=== PATIENT | male | born 1980 | race Caucasian/White ===

== ENCOUNTER 2016-10-20 10:55 | Inpatient (IN) | payer OTHER ==
[~2016-10-20] VITALS: Ht 180.3 cm; Wt 97.5 kg
[2016-10-20 11:00] VITALS: BP_SYST 144
[2016-10-20] MEDS ORDERED: NACL 0.9% 1,000 ML IV ONE (11:05)
[2016-10-20] MEDS ORDERED: ONDANSETRON HCL 4 MG/2 ML VIAL IVP ONE (11:15)
[2016-10-20 11:18] LABS: BILIRUBIN,URINE NEGATIVE (NEGATIVE); BLOOD, URINE NEGATIVE (NEGATIVE); CLARITY/URINE CLEAR (CLEAR); COLOR,URINE YELLOW (YELLOW); GLUCOSE,URINE NEGATIVE (NEGATIVE); KETONES,URINE NEGATIVE (NEGATIVE); LEUKOCYTE ESTERASE ,URINE NEGATIVE (NEGATIVE); NITRITE, URINE NEGATIVE (NEGATIVE); PH,URINE 5.5 (5.0-8.0); PROTEIN URINE NEGATIVE (NEGATIVE); UROBILINOGEN,URINE 0.2 (0.2-1.0)
[2016-10-20 11:35] LABS: ANION GAP 4 (5-15); CHLORIDE 107 mmol/L (98-107); CREATININE 0.89 mg/dL (0.55-1.30); GLUCOSE 93 mg/dL (70-99); POTASSIUM 3.7 mmol/L (3.5-5.1); SODIUM SERUM 139 mmol/L (136-145); UREA NITROGEN, BLOOD 15 mg/dL (8-21)
[2016-10-20 11:38] LABS: BASOPHILS # (AUTO) 0.1 K/uL (0.0-0.2); BASOPHILS % (AUTO) 0.7 % (0.0-2.0); EOSINOPHILS # (AUTO) 0.1 K/uL (0.0-0.4); EOSINOPHILS % (AUTO) 0.9 % (0.0-4.0); HEMATOCRIT 45.1 % (36-54); HEMOGLOBIN 14.8 g/dL (14.0-18.0); LYMPHOCYTES % (AUTO) 24.7 % (20.5-51.5); MEAN CORPUSCULAR HEMOGLOBIN 27 pg (27-31); MEAN CORPUSCULAR HGB CONC 33 % (32-36); MEAN CORPUSCULAR VOLUME 82 fL (79.0-98.0); MONOCYTES # (AUTO) 0.6 K/uL (0.0-1.0); MONOCYTES % (AUTO) 7.1 % (1.7-9.3); NEUTROPHILS # (AUTO) 5.3 K/uL (1.8-7.7); NEUTROPHILS % (AUTO) 66.6 % (40.0-70.0); PLATELET COUNT (AUTO) 257 K/uL (130-430); RED BLOOD CELL COUNT(AUTO) 5.49 MIL/uL (4.2-6.2); RED CELL DISTRIBUTION WIDTH 13.6 % (9.0-15.0); WHITE BLOOD COUNT (AUTO) 8.1 K/uL (4.8-10.8)
[2016-10-20 11:39] LABS: ALANINE AMINOTRANSFERASE 36 U/L (12-78); ALBUMIN 3.9 g/dL (3.4-4.8); AMYLASE 41 U/L (0-100); ASPARTATE AMINOTRANSFERASE 24 U/L (10-37); CREATINE KINASE, TOTAL 362 U/L (39-308); LIPASE 112 U/L (73-393); TOTAL BILIRUBIN 0.6 mg/dL (0.0-1.0); TOTAL PROTEIN, SERUM 7.9 g/dL (6.4-8.3)
[2016-10-20 11:40] LABS: ALCOHOL, BLOOD < 3 mg/dL (<10); GFR AFRICAN AMERICAN 124 mL/min (>90); PROTHROMBIN TIME 10.6 SECS (9.5-12.5)
[2016-10-20 11:46] LABS: BENZODIAZEPINE, URINE POSITIVE (NEG <=150); METHAMPHETAMINES SCREEN,URINE POSITIVE (NEG <=500); OPIATE, URINE POSITIVE (NEG <=100); URINE AMPHETAMINE POSITIVE (NEG <=500)
[2016-10-20 11:47] LABS: BARBITURATE, URINE NEGATIVE (NEG <=200); CANNABINOID, URINE NEGATIVE (NEG <=50); COCAINE, URINE NEGATIVE (NEG <=150); PHENCYCLIDINE SCREEN,URINE NEGATIVE (NEG <=25); UR TRICYCLIC ANTIDEPRESSANTS NEGATIVE (NEG <=300); URINE METHADONE NEGATIVE (NEG <=200); URINE OXYCODONE SCREEN NEGATIVE (NEG <=100); URINE PROPOXYPHENE SCREEN NEGATIVE (NEG <=300)
[2016-10-20] MEDS ORDERED: ONDANSETRON HCL 4 MG/2 ML VIAL ONE (11:54)
[2016-10-20 11:58] LABS: SALICYLATE 1 mg/dL (3-30)
[2016-10-20 12:04] LABS: ACETAMINOPHEN < 1 ug/mL (1-30); CKMB RELATIVE INDEX 1.3 (0.0-2.9); CREATINE KINASE MB 4.7 ng/mL (0-3.6)
[2016-10-20] MEDS ORDERED: ALPR1TAB2 PO (15:50)
[2016-10-20] MEDS ORDERED: HYDR-4100 PO (15:50)
[2016-10-20 17:15] VITALS: BP_SYST 129
[2016-10-20 17:32] VITALS: BP_SYST 129
[2016-10-20] MEDS ORDERED: ALPRAZolam 0.25 MG TABLET PO PRN ×2 (17:45)
[2016-10-20] MEDS ORDERED: ACETAMINOPHEN 325 MG TABLET PO PRN (17:45)
[2016-10-20] MEDS ORDERED: ONDANSETRON HCL 4 MG/2 ML VIAL IVP PRN (17:45)
[2016-10-20] MEDS ORDERED: PANTOPRAZOLE SODIUM 40 MG TAB PO SCH (17:45)
[2016-10-20] MEDS ORDERED: ZOLPIDEM TARTRATE 5 MG TABLET PO PRN (19:30)
[2016-10-20 22:04] VITALS: BP_SYST 130
== END 2016-10-20 22:20 | disposition left against medical advice (07) | DRG 885 ==
LOC: SED 10:55 → SIC 15:44
PROVIDERS: ADMIT Internal Medicine; ATTEND Internal Medicine
DX: F32.2 Major depressive disorder, single episode, severe without psychotic features (principal); R45.851 Suicidal ideations; F23 Brief psychotic disorder; Z53.21 Procedure and treatment not carried out due to patient leaving prior to being seen by health care provider; F41.9 Anxiety disorder, unspecified; F12.90 Cannabis use, unspecified, uncomplicated; Z82.49 Family history of ischemic heart disease and other diseases of the circulatory system
CPT/HCPCS: 36415; 80053; 80307; 81003; 82150-TC; 82550-TC; 82553-TC; 83690-TC; 84443-TC; 85025; 85610-TC; 85730-TC; 93005; G0480; G0481; G0482; J2405; J7030

== ENCOUNTER 2016-10-21 00:11 | Emergency (ER) | payer SELFPAY ==
[~2016-10-21] VITALS: Ht 180.3 cm; Wt 74.8 kg
[~2016-10-21 00:11] MED LIST: ALPR1TAB2 PO; HYDR-4100 PO
[2016-10-21 00:16] VITALS: BP_SYST 149
--- NOTE | 2016-10-21 00:18 | NUR ---
Patient to ER bed 05 to gown for evaluation. Side rails up. Report given to SANG Holland.
--- NOTE | 2016-10-21 00:20 | NUR ---
Patient brought to ED by a/o x 4. Patient was seen at [facility] earlier today. Admitted to ICU for psychiatric evaluation. During time in ICU, patient was evaluated by PET team. PET team reports minimal cooperation during evaluation. Patient was placed on a 5150 hold. Patient fled ICU at approximately 2220. Patient reports being asleep during evaluation, and awakening to hold placement. Patient has Hx of anxiety. Upon return to ED patient is aggitated. Patient denies pain. Has no other medical complaints. Patient does not appear to be threat to self or others. Denies suicidal ideation. Patient is upset about being placed on hold. at bedside. Will continue to monitor.
--- NOTE | 2016-10-21 00:30 | NUR ---
Spoke with patient regarding 5150 hold and placement on hold. Patient appears agitated and frustrated over hold placement, patient states he has been to [facility] before and does not want to return. Patient is not violent at this time, but is refusing to reliquish belongings, patient is in gown and was wanded by security staff. Patient repeatedly denies suicidal ideation. Though non-violent at this time, patient's level of agitation over current situation is cause for concern over safety of staff and other patient's. Will continue to monitor and consult with warehouse engineer.
--- NOTE | 2016-10-21 00:30 | NUR ---
Security at bedside.
--- NOTE | 2016-10-21 00:30 | NUR ---
Patient belonging wanded.
--- NOTE | 2016-10-21 00:35 | NUR ---
ED MD Osea at bedside for medical evaluation.
--- NOTE | 2016-10-21 00:50 | NUR ---
Spoke with telephone supervisor SANG Maher and was told to call PET team for possible re-evaluation per Tessy CUELLAR.
--- NOTE | 2016-10-21 00:55 | NUR ---
Spoke with PET team Nela and Felix Martínez regarding patient and placement of 5150 hold on patient. Informed that the carrying out of 5150 hold should be followed out per hospital policy and reassessment is not an option at this time,"unless absolutely necessary", even though patient at this time does not appear to meet 5150 Criteria. Accounts Receivable Representative SANG Maher informed. Will consult with house director, TATIANA PRICE, and DON at this time for treatment plan. Addendum: 10/21/16 at 0356 by SDEDLJ Correct lawrenceing Felix Wyman.
--- NOTE | 2016-10-21 01:10 | NUR ---
Bertin Hurt arrived to ED. Informed by they are unable to intervene with patient, because he is not in custody. reports intervening with a medical patient is deemed out of procedure. Bertin Hurt informed to notify if the patient elopes, but can provide no further assistance at this time.
[2016-10-21] MEDS ORDERED: NACL 0.9% 1,000 ML IV ONE (01:59)
[2016-10-21] MEDS: ZIPRASIDONE HCL 20 MG CAPSULE (GEODON) PO SCH ×3 (02:15→09:37)
[2016-10-21 02:22] LABS: BILIRUBIN,URINE NEGATIVE (NEGATIVE); BLOOD, URINE NEGATIVE (NEGATIVE); COLOR,URINE YELLOW (YELLOW); GLUCOSE,URINE NEGATIVE (NEGATIVE); KETONES,URINE NEGATIVE (NEGATIVE); LEUKOCYTE ESTERASE ,URINE NEGATIVE (NEGATIVE); NITRITE, URINE NEGATIVE (NEGATIVE); PROTEIN URINE NEGATIVE (NEGATIVE); UROBILINOGEN,URINE 0.2 (0.2-1.0)
[2016-10-21 02:25] LABS: CLARITY/URINE HAZY (CLEAR)
--- NOTE | 2016-10-21 02:30 | NUR ---
Patient calm and compliant, apologizes for earlier agitation. Patient states he came in earlier to the ED because he was "...tired and I've been working alot. I felt like I just needed some fluids and rest and the next thing I know they put me on a hold." Patient states he does have anxiety disorder and is currently on anti-anxiety medications at home, states "I was not properly medicated when I was admitted they only gave me 0.5 mg of my med and I usually take 1 mg." Patient is willing to wait for psychiatric md consult and will comply with lab blood draw at this time. No acute distress noted. Will continue to monitor.
[2016-10-21 02:33] LABS: BARBITURATE, URINE NEGATIVE (NEG <=200); BENZODIAZEPINE, URINE POSITIVE (NEG <=150); CANNABINOID, URINE NEGATIVE (NEG <=50); COCAINE, URINE NEGATIVE (NEG <=150); METHAMPHETAMINES SCREEN,URINE NEGATIVE (NEG <=500); OPIATE, URINE NEGATIVE (NEG <=100); PHENCYCLIDINE SCREEN,URINE NEGATIVE (NEG <=25); UR TRICYCLIC ANTIDEPRESSANTS NEGATIVE (NEG <=300); URINE AMPHETAMINE POSITIVE (NEG <=500); URINE METHADONE NEGATIVE (NEG <=200); URINE OXYCODONE SCREEN NEGATIVE (NEG <=100); URINE PROPOXYPHENE SCREEN NEGATIVE (NEG <=300)
--- NOTE | 2016-10-21 02:35 | NUR ---
Laboratory at bedside.
[2016-10-21 03:22] LABS: BASOPHILS % (AUTO) 0.5 % (0.0-2.0); EOSINOPHILS # (AUTO) 0.2 K/uL (0.0-0.4); EOSINOPHILS % (AUTO) 3.5 % (0.0-4.0); HEMOGLOBIN 15.2 g/dL (14.0-18.0); LYMPHOCYTES # (AUTO) 2.2 K/uL (1.0-5.5); LYMPHOCYTES % (AUTO) 30.9 % (20.5-51.5); MEAN CORPUSCULAR HEMOGLOBIN 27 pg (27-31); MEAN CORPUSCULAR HGB CONC 32 % (32-36); MEAN CORPUSCULAR VOLUME 83 fL (79.0-98.0); MONOCYTES # (AUTO) 0.7 K/uL (0.0-1.0); MONOCYTES % (AUTO) 10.3 % (1.7-9.3); NEUTROPHILS # (AUTO) 3.9 K/uL (1.8-7.7); NEUTROPHILS % (AUTO) 54.8 % (40.0-70.0); PLATELET COUNT (AUTO) 272 K/uL (130-430); RED BLOOD CELL COUNT(AUTO) 5.65 MIL/uL (4.2-6.2); RED CELL DISTRIBUTION WIDTH 13.7 % (9.0-15.0)
[2016-10-21] MEDS ORDERED: LORazepam 1 MG TABLET PO ONE (03:30)
--- NOTE | 2016-10-21 03:30 | NUR ---
Medicated per ED MD Oskenisha orders. Patient recieved 2 mg ativan. Requested pillow. Informed patient in order to have 5150 hold lifted, he must be cleared by a psychiatric doctor. Call sent out to Dr. Winston Patient understands and consents to waiting for further evaluation to have hold lifted. Resting quietly at this time. No acute distress noted. Will continue to monitor.
[2016-10-21 03:36] LABS: CHLORIDE 106 mmol/L (98-107); CREATININE 0.99 mg/dL (0.55-1.30); GLUCOSE 73 mg/dL (70-99); POTASSIUM 3.9 mmol/L (3.5-5.1); SODIUM SERUM 138 mmol/L (136-145); UREA NITROGEN, BLOOD 16 mg/dL (8-21)
[2016-10-21 03:37] LABS: ANION GAP < 3 (5-15); GFR AFRICAN AMERICAN 109 mL/min (>90)
[2016-10-21 03:40] LABS: ALANINE AMINOTRANSFERASE 36 U/L (12-78); ALBUMIN 3.8 g/dL (3.4-4.8); ASPARTATE AMINOTRANSFERASE 21 U/L (10-37); TOTAL BILIRUBIN 0.4 mg/dL (0.0-1.0)
[2016-10-21 03:42] LABS: ALCOHOL, BLOOD < 3 mg/dL (<10)
--- NOTE | 2016-10-21 04:30 | NUR ---
Patient resting quietly. No acute distress noted. Vital signs within normal range.
--- NOTE | 2016-10-21 05:30 | NUR ---
Upon reassessment, patient denies any thoughts of harm to self or others. Patient is calm and cooperative. No aggitation noted. Denies pain.
--- NOTE | 2016-10-21 07:09 | NUR ---
Spoke with Dr. Barrientos. Updated on patient status and situation. Dr. Barrientos given ETA of 0730 to come for evaluation.
--- NOTE | 2016-10-21 07:15 | NUR ---
received pt from the grader meat nurse Skyler,pt is eating breakfast,fully awake,alert,oriented x4,deneis SI and HI,denies auditory and visual hallucination.awaiting for Dr Duong coming to evaluate the patient.
--- NOTE | 2016-10-21 08:04 | NUR ---
suicide risk/lethality assessment completed and placed in the chart.
--- NOTE | 2016-10-21 09:10 | NUR ---
director nenita at bedside talking to the patient
[2016-10-21] MEDS ORDERED: ALPRAZolam 0.25 MG TABLET PO ONE (09:45)
--- NOTE | 2016-10-21 09:46 | NUR ---
pt refused geodon,Dr martinez notifed.changed to xanax 2mg.
--- NOTE | 2016-10-21 09:48 | NUR ---
Dr griffith at bedside examing pt, give xanax 1mg only per Dr griffith.ok by Dr martinez.
--- NOTE | 2016-10-21 09:53 | NUR ---
pt can be discharged per Dr Duong.
--- NOTE | 2016-10-21 10:10 | NUR ---
Patient given written and verbal discharge instructions and verbalizes understanding. ER MD discussed with patient the results and treatment provided. Patient in stable condition. ID arm band removed. Rx of 0 given. Patient educated on pain management and to follow up with PMD. Pain Scale 0. Opportunity for questions provided and answered.
[2016-10-21 10:11] VITALS: BP_SYST 130
== END 2016-10-21 10:10 | disposition home or self-care (01) ==
LOC: SED 00:11
DX: F15.10 Other stimulant abuse, uncomplicated (principal); F99 Mental disorder, not otherwise specified
CPT/HCPCS: 36415; 80053; 80307; 81003; 85025; 99284; G0482